=== PATIENT | female | born 1985 | race African-American/Black ===

== ENCOUNTER → 2017-06-29 | Outpatient (CLI) | payer BC ==
[2017-06-29 16:03] LABS: BASO # 0.1 x10^3/uL (0.0-0.2); BASO % 1 % (0-3); EOS # 0.2 x10^3/uL (0.0-0.7); EOS % 3 % (0-3); HEMATOCRIT 37.8 % (36.0-47.0); HEMOGLOBIN 12.7 g/dL (12.0-15.5); LYMPH # 2.1 x10^3/uL (1.0-4.8); LYMPH % 22 % (24-48); MEAN CORPUSCULAR HEMOGLOBIN 31 pg (25-35); MEAN CORPUSCULAR HGB CONC 34 g/dL (31-37); MEAN CORPUSCULAR VOLUME 91 fL (79-100); MONO # 0.5 x10^3/uL (0.0-1.1); MONO % 6 % (0-9); NEUT # 6.5 x10^3uL (1.8-7.7); NEUT % 68 % (31-73); PLATELET COUNT 233 x10^3/uL (140-400); RED BLOOD COUNT 4.15 x10^6/uL (3.50-5.40); RED CELL DISTRIBUTION WIDTH 13.7 % (11.5-14.5); WHITE BLOOD COUNT 9.4 x10^3/uL (4.0-11.0)
[2017-06-29 16:09] LABS: ADD MAN DIFF? YES
[2017-06-29 16:26] LABS: ALBUMIN 3.4 g/dL (3.4-5.0); ALBUMIN/GLOBULIN RATIO 0.9 (1.0-1.7); ALK PHOS 60 U/L (46-116); ALT (SGPT) 37 U/L (14-59); ANION GAP 12 (6-14); AST (SGOT) 26 U/L (15-37); BLOOD UREA NITROGEN 22 mg/dL (7-20); BUN/CREATININE RATIO 9 (6-20); CALCIUM 8.7 mg/dL (8.5-10.1); CARBON DIOXIDE 27 mmol/L (21-32); CHLORIDE 103 mmol/L (98-107); CREATININE 2.5 mg/dL (0.6-1.0); GFR 27.2; GLUCOSE 99 mg/dL (70-99); SODIUM 142 mmol/L (136-145); TOTAL BILIRUBIN 0.3 mg/dL (0.2-1.0); TOTAL PROTEIN 7.3 g/dL (6.4-8.2)
[2017-06-29 16:32] LABS: POTASSIUM 2.8 mmol/L (3.5-5.1)
[2017-06-29 16:37] LABS: % BASOS 1 % (0-3); % EOS 2 % (0-5); % LYMPHS 19 % (24-48); % MONOS 6 % (0-10); % SEGS 72 % (35-66); PLT ESTIMATE ADEQUATE (ADEQUATE)
[2017-06-29 17:06] LABS: BILIRUBIN,URINE NEGATIVE (NEG); CLARITY,URINE CLEAR; COLOR,URINE YELLOW; GLUCOSE,URINE NEGATIVE (NEG); NITRITE,URINE NEGATIVE (NEG); PROTEIN,URINE 100 mg/dL (NEG-TRACE); UROBILINOGEN,URINE 0.2 mg/dL (0.2 mg/dL)
[2017-06-29 17:32] LABS: BACTERIA,URINE 0 /HPF (0-FEW); HYALINE CASTS, URINE MODERATE /HPF; SQUAMOUS EPITHELIAL CELL,UR FEW /LPF; WBC,URINE >40 /HPF (0-4)
[2017-06-29 17:33] LABS: TRICHOMONAS,URINE PRESENT
== END | disposition home or self-care (01) ==
LOC: SURGPAT 15:26
DX: Z01.818 Encounter for other preprocedural examination (principal)
CPT/HCPCS: 36415; 71046; 80053; 81001; 85007; 85025; 87086; 93005

== ENCOUNTER 2017-08-16 05:49 | Observation (INO) | payer BC ==
[2017-08-16] MEDS: amLODIPine BESYLATE 10 MG TABLET PO (04:10)
[2017-08-16] MEDS ORDERED: ESTROGENS, CONJ VAGINAL CREAM 30GM TUBE. (06:12)
[2017-08-16] MEDS ORDERED: BUPIVACAINE-EPI 0.25%-1:200000 50 ML VIAL. (06:12)
[2017-08-16] MEDS ORDERED: METHYLENE BLUE 1% 10 ML VIAL. (06:12)
[2017-08-16 06:19] LABS: NEG OBC UR NEG; POS OBC UR POS; U PREG PATIENT NEGATIVE (NEG)
[2017-08-16] MEDS: IV RINGERS,LACTATED 1000ML 1,000 ML IV ×2 (06:41→09:54)
[2017-08-16 06:47] LABS: ADD MAN DIFF? NO
[2017-08-16 06:49] LABS: BASO # 0.1 x10^3/uL (0.0-0.2); BASO % 2 % (0-3); EOS # 0.2 x10^3/uL (0.0-0.7); EOS % 2 % (0-3); HEMATOCRIT 35.9 % (36.0-47.0); LYMPH # 1.9 x10^3/uL (1.0-4.8); LYMPH % 22 % (24-48); MEAN CORPUSCULAR HEMOGLOBIN 30 pg (25-35); MEAN CORPUSCULAR HGB CONC 33 g/dL (31-37); MEAN CORPUSCULAR VOLUME 90 fL (79-100); MONO # 0.7 x10^3/uL (0.0-1.1); MONO % 7 % (0-9); NEUT % 67 % (31-73); PLATELET COUNT 248 x10^3/uL (140-400); RED BLOOD COUNT 4.01 x10^6/uL (3.50-5.40); RED CELL DISTRIBUTION WIDTH 13.7 % (11.5-14.5); WHITE BLOOD COUNT 8.9 x10^3/uL (4.0-11.0)
[2017-08-16] MEDS ORDERED: ONDANSETRON PF 4 MG/2 ML VIAL. IV ×2 (07:00→09:45)
[2017-08-16] MEDS ORDERED: LIDOCAINE 1% PF 2 ML VIAL. ID (07:00)
[2017-08-16] MEDS ORDERED: fentaNYL PF VIAL 100 MCG/2 ML VIAL IV (07:00)
[2017-08-16] MEDS ORDERED: MORPHINE SULFATE 4 MG/ML DISP.SYRIN. IV ×2 (07:00→09:45)
[2017-08-16 07:03] LABS: ANION GAP 12 (6-14); BLOOD UREA NITROGEN 29 mg/dL (7-20); BUN/CREATININE RATIO 12 (6-20); CALCIUM 9.3 mg/dL (8.5-10.1); CARBON DIOXIDE 22 mmol/L (21-32); CHLORIDE 105 mmol/L (98-107); CREATININE 2.4 mg/dL (0.6-1.0); GFR 28.5; GLUCOSE 114 mg/dL (70-99); POTASSIUM 3.2 mmol/L (3.5-5.1); SODIUM 139 mmol/L (136-145)
[2017-08-16 07:08] LABS: ALBUMIN 3.6 g/dL (3.4-5.0); ALBUMIN/GLOBULIN RATIO 0.9 (1.0-1.7); ALK PHOS 75 U/L (46-116); ALT (SGPT) 18 U/L (14-59); AST (SGOT) 14 U/L (15-37); TOTAL BILIRUBIN 0.7 mg/dL (0.2-1.0); TOTAL PROTEIN 7.6 g/dL (6.4-8.2)
[2017-08-16] MEDS ORDERED: ROCURONIUM 50 MG/5 ML VIAL. (07:15)
[2017-08-16] MEDS ORDERED: DEXAMETHASONE SOD PHOS 20 MG/5 ML VIAL. (07:15)
[2017-08-16] MEDS ORDERED: MIDAZOLAM HCL/PF 2 MG/2 ML VIAL. (07:15)
[2017-08-16] MEDS ORDERED: DESFLURANE 61 TO 120 MINUTES IH (07:15)
[2017-08-16] MEDS ORDERED: LIDOCAINE 1% PF 5 ML VIAL. (07:15)
[2017-08-16] MEDS ORDERED: fentaNYL PF VIAL 100 MCG/2 ML VIAL ×2 (07:15→09:37)
[2017-08-16] MEDS ORDERED: FAMOTIDINE 20 MG/2 ML VIAL (07:16)
[2017-08-16] MEDS ORDERED: ONDANSETRON PF 4 MG/2 ML VIAL. (07:16)
[2017-08-16] MEDS ORDERED: PROPOFOL 20 ML IV (07:16)
[2017-08-16] MEDS: BUPIVACAINE-EPI 0.25%-1:200000 50 ML VIAL. INJ (07:52)
[2017-08-16] MEDS ORDERED: LABETALOL 20 MG/4 ML DISP.SYRIN. (07:59)
[2017-08-16] MEDS ORDERED: ceFAZolin 2GM PREMIX 2 GM/50 ML BAG IV (08:00)
[2017-08-16] MEDS ORDERED: NEOSTIGMINE 10 MG/10 ML VIAL. (08:51)
[2017-08-16] MEDS ORDERED: GLYCOPYRROLATE 1 MG/5 ML VIAL. (08:51)
[2017-08-16] MEDS ORDERED: MORPHINE SULFATE 10 MG/ML VIAL. (09:25)
[2017-08-16] MEDS ORDERED: oxyCODONE/APAP 5/325 1 TAB TABLET PO (09:45)
[2017-08-16] MEDS ORDERED: SIMETHICONE 80 MG TAB.CHEW PO (09:45)
[2017-08-16] MEDS ORDERED: LACTULOSE 20 GM/30 ML SOLUTION. PO (09:45)
[2017-08-16] MEDS ORDERED: 0.9 % SODIUM CHLORIDE 10 ML DISP.SYRIN. IV (09:45)
[2017-08-16] MEDS ORDERED: NALOXONE 0.4 MG/ML VIAL. IV (09:45)
[2017-08-16] MEDS ORDERED: MAG HYDROX/ALUMINUM HYD/SIMETH 30 ML ORAL.SUSP PO (09:45)
[2017-08-16] MEDS ORDERED: CALCIUM CARBONATE 500 MG TAB.CHEW PO (09:45)
[2017-08-16] MEDS ORDERED: diphenhydrAMINE 50 MG/ML VIAL IV (09:45)
[2017-08-16] MEDS ORDERED: ZOLPIDEM 5 MG TABLET. PO (09:45)
[2017-08-16] MEDS ORDERED: MAGNESIUM HYDROXIDE 2,400 MG/30 ML ORAL.SUSP. PO (09:45)
[2017-08-16] MEDS ORDERED: diphenhydrAMINE HCL 25 MG CAPSULE PO (09:45)
[2017-08-16] MEDS: PROCHLORPERAZINE 10 MG/2 ML VIAL. IV (09:55)
[2017-08-16] MEDS: fentaNYL PF VIAL 100 MCG/2 ML VIAL IV ×2 (09:55→10:02)
[2017-08-16] MEDS: MORPHINE SULFATE 4 MG/ML DISP.SYRIN. IV (10:01)
[2017-08-16] MEDS: HYDROcodone/APAP 5/325MG 1 TAB TABLET PO ×3 (11:31→21:46)
[2017-08-16] MEDS: hydroCHLOROthiazide 25 MG TABLET PO (12:00)
[2017-08-16] MEDS: CARVEDILOL 12.5 MG TABLET. PO (17:01)
[2017-08-16] MEDS: LISINOPRIL 20 MG TABLET PO (17:02)
[2017-08-17] MEDS: HYDROcodone/APAP 5/325MG 1 TAB TABLET PO ×2 (04:00→08:59)
[2017-08-17] MEDS: hydroCHLOROthiazide 25 MG TABLET PO (04:08)
[2017-08-17] MEDS: LISINOPRIL 20 MG TABLET PO (04:09)
[2017-08-17] MEDS: POTASSIUM CHLORIDE 20 MEQ TABLET.ER. PO (04:10)
[2017-08-17] MEDS: CARVEDILOL 12.5 MG TABLET. PO (04:11)
[2017-08-17 04:47] LABS: HEMATOCRIT 33.4 % (36.0-47.0)
[2017-08-17 05:18] LABS: ANION GAP 9 (6-14); BLOOD UREA NITROGEN 21 mg/dL (7-20); CALCIUM 9.1 mg/dL (8.5-10.1); CARBON DIOXIDE 23 mmol/L (21-32); CHLORIDE 105 mmol/L (98-107); CREATININE 2.3 mg/dL (0.6-1.0); GFR 29.9; GLUCOSE 125 mg/dL (70-99); POTASSIUM 3.5 mmol/L (3.5-5.1); SODIUM 137 mmol/L (136-145)
== END 2017-08-17 09:59 | disposition home or self-care (01) ==
LOC: SURG 05:49 → 3 NORTH 09:44
DX: D25.9 Leiomyoma of uterus, unspecified (principal); K66.0 Peritoneal adhesions (postprocedural) (postinfection); N80.0 Endometriosis of uterus; N72 Inflammatory disease of cervix uteri
CPT/HCPCS: 36415; 80048; 80053; 81025; 85014; 85025; 86850; 86900; 86901; 88307; C1769; G0378; G0379; J0690; J1100; J2250; J2270; J2405; J2704; J2710; J3010; J3490; J7030; J7120; Q9968; S0028